=== PATIENT | male | born 1995 | race Caucasian/White ===

== ENCOUNTER 2017-04-07 09:26 | Emergency (ER) | payer OTHER ==
[~2017-04-07] VITALS: Ht 180.3 cm; Wt 73.0 kg
[2017-04-07 10:46] VITALS: BP 145/62
== END 2017-04-07 10:46 | disposition home or self-care (01) ==
LOC: ED 09:26
DX: S80.862A Insect bite (nonvenomous), left lower leg, initial encounter (principal); R03.0 Elevated blood-pressure reading, without diagnosis of hypertension; W57.XXXA Bitten or stung by nonvenomous insect and other nonvenomous arthropods, initial encounter; Y93.89 Activity, other specified; Y99.8 Other external cause status; Y92.89 Other specified places as the place of occurrence of the external cause